=== PATIENT | male | born 1970 | race Caucasian/White ===

== ENCOUNTER → 2019-09-24 15:39 | Outpatient (CLI) | payer OTHER, SELFPAY ==
[2019-09-25 09:36] LABS: COVID19 Sendout Not Detected (Not Detect)
== END ==
PROVIDERS: Visit Provider Registered Nurse
DX: Z01.812 Encounter for preprocedural laboratory examination (principal)
CPT/HCPCS: 87635

== ENCOUNTER → 2019-09-27 10:52 | Outpatient (CLI) | payer OTHER, SELFPAY ==
--- NOTE | 2019-09-27 15:57 | PM.TREADMILL ---
Cardiac Stress Test Report Referral & Results Date Patient Seen: 09/27/19 Time Patient Seen: 15:57 Requesting provider: Awa Garcia Indication: Chest pain Rest ECG: sinus rhythm Procedure Note: Standard Dillan protocol, 7:51 mins; 8.8 METS Reduced exercise capacity, RAMA +23% Normal hemodynamic response to exercise No anginal or chest pain symptoms No ST changes, no ectopy Impression: Normal exercise stress test Please note: Actual ECG tracings can be found in the PACS system.
--- NOTE | 2019-09-28 12:45 | DI.NM.S_ITS ---
DATE OF SERVICE: 09/27/2019 PROCEDURE PERFORMED: Exercise treadmill stress and rest myocardial perfusion imaging with gating to assess ejection fraction and regional wall motion, performed as a one day study. ORDERING PROVIDER: Awa Garcia PA-C. INDICATIONS: The patient is a 49-year-old male with anxiety and atypical chest pain. EXERCISE TREADMILL TESTING: The patient was able to exercise for 7 minutes 51 seconds on a standard Dillan protocol, suggesting moderately impaired exercise capacity with an RAMA of +23%. He had a normal heart rate response, achieving a maximum heart rate of 162 bpm (95% of his predicted maximum). He had a borderline hypertensive blood pressure response with a resting blood pressure of 130/90, increasing to a maximum of 200/100. He had no chest discomfort other anginal symptoms. His resting ECG shows sinus rhythm with normal ST segments and there are no significant ST-segment shifts or arrhythmia with stress. At 6 minutes 20 seconds of exercise, at a heart rate of 159 bpm, 25.8 mCi of technetium-99m Myoview was injected and the patient was imaged 20minutes later using a gated SPECT acquisition protocol. Earlier in the day, he had been injected with 11.5 mCi of technetium-99m Myoview at rest and was imaged 30 minutes following that, again using a gated SPECT acquisition protocol. FINDINGS: 1. Raw Data: There is good myocardial tracer uptake without obvious artifact. Lung/heart ratio is normal at 0.26 and the TID ratio is normal at 0.47. 2. Quantitated gated SPECT: Post-stress ejection fraction is estimated at 92%, likely an overestimate because of relatively small left ventricular volumes, and no focal abnormality. Resting ejection fraction is estimated at 76% with a resting end- diastolic volume of 80 mL. 3. Myocardial perfusion imaging: Post-stress supine images show a normal myocardial perfusion pattern without any perfusion defects, supported by normal perfusion imaging in the prone position. The resting images showed no areas of improvement. CONCLUSIONS: 1. Normal myocardial perfusion study. 2. No evidence for myocardial ischemia or previous myocardial infarction. 3. Normal left ventricular systolic function without any regional wall motion abnormality. 4. Moderately impaired exercise capacity without angina or ECG evidence of ischemia. He had a borderline hypertensive blood pressure response to exercise. Sukhi Conner - ROBIN/charlotte/lani doc#: [id number]/job#: [id number] dd: 09/28/2019 11:08:00 dt: 09/28/2019 12:32:00 DICTATING MD/COPIES TO: Harjeet Durham MD; LINDSEY Gonsalez; CAROL Loyd COPIES MNE: ROBYN; ;
== END ==
PROVIDERS: PCP Physician Assistant Medical; Referring Provider Physician Assistant Medical; Visit Provider Physician Assistant Medical
DX: R07.89 Other chest pain (principal); F41.9 Anxiety disorder, unspecified
CPT/HCPCS: 78452; 93017; A9502

== ENCOUNTER 2022-10-24 11:49 | Emergency (ER) | payer OTHER, SELFPAY ==
[2022-10-24] VITALS (9 sets, daily range): BP systolic 124–166; BP diastolic 82–107; PULSE 61–64; RESP 12–20; O2SAT 96–100; BMI 29.0
--- NOTE | 2022-10-24 11:57 | DI.RAD.S_ITS ---
PROCEDURE: XR CHEST 1V INDICATIONS: chest pain TECHNIQUE: One view of the chest was acquired. COMPARISON: None. FINDINGS: Surgical changes and devices: None. Lungs and pleura: Lungs are clear. No pleural effusions or pneumothorax. Mediastinum: Mediastinal contours appear normal. Heart size is enlarged. Bones and chest wall: No suspicious bony lesions. Overlying soft tissues appear unremarkable. IMPRESSION: No acute cardiopulmonary process. Dictated by: Lit Doyle M.D. on 10/24/2022 at 12:45 Approved by: Lti Doyle M.D. on 10/24/2022 at 12:45
--- NOTE | 2022-10-24 12:08 | ED_ITS ---
HPI - Chest Pain General Chief Complaint: Chest Pain Stated Complaint: sent by whidNuPathey/heart issues Time Seen by Provider: 10/24/22 11:57 Source: patient Mode of arrival: Family Vehicle Limitations: no limitations History of Present Illness HPI narrative: Patient 52-year-old male history of hypertension hyperlipidemia diabetes presenting today with chest discomfort. He actually reports that yesterday while walking he felt like he had cramp from his neck all the way down to his pelvis. Every time he moved or breathed or bent over. It persisted throughout the night. He took an oxycodone to see if he could get some sleep which he was unable to do so. He feels a little bit nauseous at times. He does have chest tightness but really feels like it is everywhere. He went to a walk-in clinic recommended he come to the ED for further evaluation. He does have some chronic arthritis and costochondritis which is reproducible he says that is not it today. He has some epigastric pain which is new. He also has a history of anxiety but does not feel like he is anxious. No significant abdominal pain although he has had some left lower quadrant pain off and on for about 1 month. Not having any pain there now. Related Data Home Medications Medication Instructions Recorded Confirmed aspirin 81 mg chewable tablet 324 mg PO PRN PRN Chest Pain 10/24/22 10/24/22 (Aspirin Childrens) blood sugar diagnostic ([facility] 10/24/22 10/24/22 Verio test strips) [facility] 10/24/22 10/24/22 Plus Lancet) metoprolol succinate 50 mg 50 mg PO DAILY 10/24/22 10/24/22 tablet,extended release 24 hr pantoprazole 20 mg tablet,delayed 20 mg PO DAILY 10/24/22 10/24/22 release paroxetine HCl 30 mg tablet 30 mg PO DAILY 10/24/22 10/24/22 simvastatin 40 mg tablet 40 mg PO ONCE PM 10/24/22 10/24/22 Allergies Allergy/AdvReac Type Severity Reaction Status Date / Time Penicillins Allergy Swelling Verified 10/24/22 11:58 of Lip/Tongue/Throat sertraline [From Zoloft] Allergy ITCHING Verified 10/24/22 12:03 Sulfa (Sulfonamide Allergy ITCHING Verified 10/24/22 11:58 Antibiotics) Review of Systems Review of Systems ROS Unobtainable: All systems reviewed & are unremarkable except as noted in HPI and below Patient History Social History Smoking Status: Never smoker Smoking Status: Never smoker alcohol intake frequency: 0-2 drinks per day Substance Use Type: does not use Exam Initial Vital Signs Initial Vital Signs: Vital Signs Pulse Rate 61 10/24/22 11:57 Respiratory Rate 16 10/24/22 11:57 Pulse Oximetry 99 10/24/22 11:57 Oxygen Delivery Method Room Air 10/24/22 11:57 GENERAL: Alert pleasant well-appearing 52-year-old male and in no acute distress. HEENT: Head atraumatic,EOMI, pupils reactive, face symmetric, moist mucous membranes CARDIOVASCULAR: Regular rate and rhythm without murmurs, rubs or gallops. RESPIRATORY: Breath sounds equal bilaterally, no wheezes rales or rhonchi. ABDOMEN: Soft, mild epigastric pain no significant right upper quadrant pain negative Armas's sign no lower abdominal pain : No CVA tenderness EXTREMITIES: Normal range of motion, no clubbing or edema. Neurovascularly intact NEUROLOGICAL: Alert and oriented x4. SKIN: Warm, dry, no laceration, no petechiae, no rashes or lesions. Scores HEART Score Heart Score history: Slightly Suspicious Heart Score EKG: Normal Heart Score Age: 45-64 years old Heart Score risk factors: > 3 risk factors or hx of atherosclerotic disease Heart Score troponin: < or = to normal limit Heart Score Total: 3 Course Orders Ordered: ED Orders 10/24/22 11:57 XR chest 1V Stat EKG-12 Lead Stat 10/24/22 12:04 Complete Blood Count AUTO DIFF Stat Comprehensive Metabolic Panel Stat Lipase Stat Magnesium Stat PTT Partial Thromboplastin Gael Stat Prothrombin Time INR Stat Troponin & CK Cardiac Panel Stat 10/24/22 12:35 US abdomen limited Stat 10/24/22 14:00 Trop I [Troponin I] Stat 10/24/22 14:59 EKG-12 Lead Stat Discontinued Medications Aspirin (Aspirin 81 Mg Chew Tab) 324 mg PO NOW ONE Stop: 10/24/22 11:58 Last Admin: 10/24/22 12:06 Dose: Not Given Documented By: ERNESTO Ketorolac Tromethamine (Ketorolac 30 Mg/Ml Vial) 15 mg IV NOW ONE Stop: 10/24/22 12:50 Last Admin: 10/24/22 13:25 Dose: 15 mg Documented By: ERNESTO Vital Signs Vital signs: Vital Signs - 8 hr 10/24/22 11:58 10/24/22 11:57 10/24/22 11:58 Pulse Rate 63 61 Respiratory Rate 18 16 Blood Pressure 157/107 H 157/107 H Pulse Oximetry 99 99 Oxygen Delivery Method Room Air Room Air 10/24/22 11:58 10/24/22 12:00 10/24/22 12:00 Pulse Rate 61 62 Respiratory Rate 12 13 Blood Pressure 166/105 H Pulse Oximetry 100 100 Oxygen Delivery Method 10/24/22 12:30 10/24/22 12:30 10/24/22 13:00 Pulse Rate 63 Respiratory Rate 18 Blood Pressure 138/92 H 135/84 Pulse Oximetry 96 Oxygen Delivery Method Room Air 10/24/22 13:00 10/24/22 13:30 10/24/22 13:30 Pulse Rate 62 61 Respiratory Rate 13 13 Blood Pressure 137/86 Pulse Oximetry 96 97 Oxygen Delivery Method 10/24/22 14:00 10/24/22 14:00 10/24/22 14:30 Pulse Rate 61 Respiratory Rate 20 Blood Pressure 149/83 H 133/84 Pulse Oximetry 96 Oxygen Delivery Method 10/24/22 14:30 10/24/22 15:00 10/24/22 15:00 Pulse Rate 64 64 Respiratory Rate 13 20 Blood Pressure 124/82 Pulse Oximetry 97 98 Oxygen Delivery Method Room Air MDM - Chest Pain Lab Data 10/24/22 12:04 10/24/22 12:04 Labs: Lab Results 10/24/22 10/24/22 10/24/22 Range/Units 12:04 12:04 12:04 WBC 10.1 (4.5-11.0) X10^3/uL RBC 4.84 (4.5-5.9) X10^6/uL Hgb 15.3 (13.5-17.5) g/dL Hct 44.0 (41-53) % MCV 90.9 (80-100) fL MCH 31.6 (26-34) PG MCHC 34.7 (30-36) % RDW 13.4 (11.6-14.8) % Plt Count 244 (150-400) X10^3/uL Neut % (Auto) 56.0 (50-75) % Lymph % (Auto) 33.6 (25-40) % [place] % (Auto) 7.8 (3-14) % Eos % (Auto) 1.8 L (2-4) % Baso % (Auto) 0.8 (0-2) % Neut # (Auto) 5700 (3970-4602) /uL Lymph # (Auto) 3400 (8597-6143) /uL [place] # (Auto) 800 (0-900) /uL Eos # (Auto) 200 (0-450) /uL Baso # (Auto) 100 (0-100) /uL PT 11.1 (10.1-12.7) SECONDS INR 1.0 (0.9-1.3) APTT 30 (26-36) SECONDS Sodium 136 L (137-145) mmol/L Potassium 4.2 (3.4-5.1) mmol/L Chloride 98 (98-107) mmol/L Carbon Dioxide 29 (22-32) mmol/L BUN 16 (9-20) mg/dL Creatinine 0.83 (0.66-1.25) mg/dL Estimated GFR > 60 (>60) mL/min BUN/Creatinine Ratio 19.3 (6-22) Glucose 153 H (70-100) mg/dL Calcium 8.8 (8.4-10.2) mg/dL Magnesium 1.9 (1.6-2.3) mg/dL Total Bilirubin 0.6 (0.2-1.3) mg/dL AST 73 H (17-59) IU/L ALT 65 H (<50) IU/L Alkaline Phosphatase 112 (38-126) U/L Total Creatine Kinase 154 (55-170) U/L Troponin I < 0.012 (0.01-0.034) ng/mL Total Protein 8.4 H (6.3-8.2) g/dL Albumin 4.7 (3.5-5.0) g/dL Globulin 3.7 (1.7-4.1) g/dL Albumin/Globulin Ratio 1.3 (1.0-2.8) Lipase 36 (23-300) U/L 10/24/22 Range/Units 14:00 WBC (4.5-11.0) X10^3/uL RBC (4.5-5.9) X10^6/uL Hgb (13.5-17.5) g/dL Hct (41-53) % MCV (80-100) fL MCH (26-34) PG MCHC (30-36) % RDW (11.6-14.8) % Plt Count (150-400) X10^3/uL Neut % (Auto) (50-75) % Lymph % (Auto) (25-40) % [place] % (Auto) (3-14) % Eos % (Auto) (2-4) % Baso % (Auto) (0-2) % Neut # (Auto) (8074-0307) /uL Lymph # (Auto) (2892-6458) /uL [place] # (Auto) (0-900) /uL Eos # (Auto) (0-450) /uL Baso # (Auto) (0-100) /uL PT (10.1-12.7) SECONDS INR (0.9-1.3) APTT (26-36) SECONDS Sodium (137-145) mmol/L Potassium (3.4-5.1) mmol/L Chloride (98-107) mmol/L Carbon Dioxide (22-32) mmol/L BUN (9-20) mg/dL Creatinine (0.66-1.25) mg/dL Estimated GFR (>60) mL/min BUN/Creatinine Ratio (6-22) Glucose (70-100) mg/dL Calcium (8.4-10.2) mg/dL Magnesium (1.6-2.3) mg/dL Total Bilirubin (0.2-1.3) mg/dL AST (17-59) IU/L ALT (<50) IU/L Alkaline Phosphatase (38-126) U/L Total Creatine Kinase (55-170) U/L Troponin I < 0.012 (0.01-0.034) ng/mL Total Protein (6.3-8.2) g/dL Albumin (3.5-5.0) g/dL Globulin (1.7-4.1) g/dL Albumin/Globulin Ratio (1.0-2.8) Lipase (23-300) U/L Imaging Data Chest x-ray: Radiologist's Impression: PROCEDURE: US ABDOMEN LIMITED INDICATIONS: RLQ PAIN TECHNIQUE: Real-time focused scanning was performed of the abdomen, with image documentation. COMPARISON: None. FINDINGS: The appendix is not visualized. Unable to assess appendiceal compressibility or the presence or absence of an appendicolith. No echogenic fat was noted. There was no free fluid or tenderness on examination. IMPRESSION: Appendix not visualized. Cannot exclude acute appendicitis. No secondary signs of acute appendicitis. Comment: If continue to suspect acute appendicitis, recommend CT. Dictated by: Thong Mercado M.D. on 10/24/2022 at 14:18 US - abdomen: Radiologist's Impression: PROCEDURE:? US ABDOMEN LIMITED ? INDICATIONS:? RUQ PAIN ? TECHNIQUE:? Real-time scanning was performed of the abdominal and retroperitoneal organs, with image documentation.? ? COMPARISON:? None. ? FINDINGS:? ? Liver:? Increased liver echogenicity with posterior attenuation, most consistent with moderate to severe steatosis. ? Gallbladder:? Gallbladder sludge.? No wall thickening.? Negative sonographic Armas sign. ? ? Biliary ducts:? Intrahepatic bile ducts are non-dilated.? Extrahepatic bile duct caliber measures 6 mm.? Normal is 6-7 mm or less in diameter, or 10 mm or less post-cholecystectomy.? ? Pancreas:? Obscured by bowel gas. ? Miscellaneous:? No free abdominal fluid.? ? ? IMPRESSION:? Gallbladder sludge without evidence of acute cholecystitis. ? Moderate to severe hepatic steatosis. ? Dictated by: Lit Doyle M.D. on 10/24/2022 at 13:16? ECG Data Interpretation: EKG 1. Sinus rhythm rate 60 [place] interval 154 QRS [address] changes T-wave inversion noted in lead 3 only similar to previous EKG from office EKG 2. Sinus rhythm no changes from prior MDM Narrative Medical decision making narrative: Patient 52-year-old male with history of hypertension hyperlipidemia diabetes presenting today with atypical chest pain. Pain from neck all the way down to his pelvis. Mildly tender in his epigastric region blood work is overall reassuring. He is 2- troponins normal EKG no elevated bilirubin liver enzymes or lipase. However ultrasound does show gallbladder sludge without evidence of acute cholecystitis. He has no fever leukocytosis. He is feeling better after Toradol. Symptoms are not consistent with acute coronary syndrome, heart score 3. I do strongly recommend that he have outpatient cardiac workup and return if symptoms are worsening. Discharge Plan Departure Patient Disposition: Home Clinical Impression: Atypical chest pain, Gallbladder sludge Instructions: DI for Atypical Chest Pain, DI for General Gallbladder Conditions Activity Restrictions/Additional Instructions: *You have been diagnosed with atypical chest pain, gallbladder sludge *What to do: At this time he may require further outpatient testing such as stress test in our echocardiogram. I think he also likely benefit from surgery consultation and following a gallbladder diet. Your gallbladder is possibly causing some problems *Continue to take medications as directed *Follow up with your primary care provider in 2-3 days or call [phone] Call [facility] to schedule follow-up appointment in 1-2 week *Return to ER if you should have increasing pain chest pain shortness of breath fever chills persistent vomiting [or] any new, worsening or concerning symptoms Prescriptions: No Action metoprolol succinate 50 mg tablet extended release 24 hr 50 mg PO DAILY pantoprazole 20 mg tablet,delayed release (DR/EC) 20 mg PO DAILY simvastatin 40 mg tablet 40 mg PO ONCE PM paroxetine HCl 30 mg tablet 30 mg PO DAILY aspirin [Aspirin Childrens] 81 mg Tablet,Chewable 324 mg PO PRN PRN (Reason: Chest Pain) (DME) lancets [OneTouch Delica Plus Lancet] 30 gauge misc MISCELLANEOUS Patient Comments: [NO ORIGINAL SIG] (DME) OneTouch Verio test strips Strip 1 strip MISCELLANEOUS DAILY Referrals: [facility] [Provider Group] Awa Garcia PA-C [Primary Care Provider] - Stand Alone Forms: Patient Portal/API
[2022-10-24 12:19] LABS: Add Manual Diff / Slide Review NO; Basophils Absolute Auto 100 /uL (0-100); Basophils Percent Auto 0.8 % (0-2); Eosinophils Absolute Auto 200 /uL (0-450); Eosinophils Percent Auto 1.8 % (2-4); Hemoglobin 15.3 g/dL (13.5-17.5); Lymphocytes Absolute Auto 3400 /uL (1100-4500); Lymphocytes Percent Auto 33.6 % (25-40); Mean Corpuscular HGB Conc 34.7 % (30-36); Mean Corpuscular Hemoglobin 31.6 PG (26-34); Mean Corpuscular Volume 90.9 fL (80-100); Monocytes Absolute Auto 800 /uL (0-900); Monocytes Percent Auto 7.8 % (3-14); Neutrophils Absolute Auto 5700 /uL (1500-7000); Platelet Count 244 X10^3/uL (150-400); Red Blood Cell Count 4.84 X10^6/uL (4.5-5.9); Red Cell Distribution Width 13.4 % (11.6-14.8); White Blood Cell Count 10.1 X10^3/uL (4.5-11.0)
[2022-10-24 12:20] LABS: Prothrombin Time 11.1 SECONDS (10.1-12.7)
[2022-10-24 12:23] LABS: PTT Partial Thromboplastin Tim 30 SECONDS (26-36)
[2022-10-24 12:25] LABS: Alanine Aminotransferase 65 IU/L (<50); Albumin 4.7 g/dL (3.5-5.0); Albumin Globulin Ratio 1.3 (1.0-2.8); Alkaline Phosphatase 112 U/L (38-126); Aspartate Aminotransferase 73 IU/L (17-59); BUN Creatinine Ratio 19.3 (6-22); Bilirubin Total 0.6 mg/dL (0.2-1.3); Blood Urea Nitrogen 16 mg/dL (9-20); Calcium 8.8 mg/dL (8.4-10.2); Carbon Dioxide 29 mmol/L (22-32); Chloride 98 mmol/L (98-107); Creatine Kinase 154 U/L (55-170); Estimated Glomerular Filt Rate > 60 mL/min (>60); Globulin 3.7 g/dL (1.7-4.1); Glucose 153 mg/dL (70-100); HEMOLYSIS 27 (0-50); Lipase 36 U/L (23-300); Magnesium 1.9 mg/dL (1.6-2.3); Potassium 4.2 mmol/L (3.4-5.1); Sodium 136 mmol/L (137-145); Total Protein 8.4 g/dL (6.3-8.2)
--- NOTE | 2022-10-24 12:35 | DI.US.S_ITS ---
PROCEDURE: US ABDOMEN LIMITED INDICATIONS: RUQ PAIN TECHNIQUE: Real-time scanning was performed of the abdominal and retroperitoneal organs, with image documentation. COMPARISON: None. FINDINGS: Liver: Increased liver echogenicity with posterior attenuation, most consistent with moderate to severe steatosis. Gallbladder: Gallbladder sludge. No wall thickening. Negative sonographic Armas sign. Biliary ducts: Intrahepatic bile ducts are non-dilated. Extrahepatic bile duct caliber measures 6 mm. Normal is 6-7 mm or less in diameter, or 10 mm or less post-cholecystectomy. Pancreas: Obscured by bowel gas. Miscellaneous: No free abdominal fluid. IMPRESSION: Gallbladder sludge without evidence of acute cholecystitis. Moderate to severe hepatic steatosis. Dictated by: Lit Doyle M.D. on 10/24/2022 at 13:16 Approved by: Lit Doyel M.D. on 10/24/2022 at 13:17
[2022-10-24 12:37] LABS: Troponin I < 0.012 ng/mL (0.01-0.034)
[2022-10-24] MEDS: KETOROLAC 30 MG/ML VIAL 15 MG IV (13:25)
[2022-10-24 14:35] LABS: Troponin I < 0.012 ng/mL (0.01-0.034)
== END 2022-10-24 15:33 | disposition home or self-care (01) ==
PROVIDERS: Emergency Provider Emergency Medicine; PCP Physician Assistant Medical
DX: R07.89 Other chest pain (principal); K82.8 Other specified diseases of gallbladder; R10.11 Right upper quadrant pain
CPT/HCPCS: 36415; 71045; 76705; 80053; 82550; 83690; 83735; 84484; 85025; 85610; 85730; 93005; 96374; 99284; J1885